=== PATIENT | female | born 1945 | race Caucasian/White ===

== ENCOUNTER 2022-11-24 09:09 | Day surgery (SDC) | payer OTHER ==
[~2022-11-24] VITALS: Ht 157.5 cm; Wt 66.3 kg
[~2022-11-24 09:09] MED LIST: HYDR1TAB94 PO; IBUP800 PO
[2022-11-24] MEDS ORDERED: BEVESPI AEROS10.7 G1 (09:27)
[2022-11-24] MEDS ORDERED: SYNTHROID100 MC1 PO (09:27)
[2022-11-24] MEDS ORDERED: LOSA50 PO (09:27)
[2022-11-24] MEDS ORDERED: TRULICITY0.75 MG/01 SQ (09:28)
[2022-11-24] MEDS ORDERED: Pentoxifylline400 MG PO (09:28)
[2022-11-24] MEDS ORDERED: ALBU2.5V5 INH (09:32)
[2022-11-24] MEDS ORDERED: OTEZLA30 MG PO (09:32)
[2022-11-24] MEDS ORDERED: RYBELSUS7 MG PO (09:32)
[2022-11-24] MEDS ORDERED: INSULANI (09:35)
--- NOTE | 2022-11-24 09:42 | NUR ---
11/24/22 0942 Rosa Serrano CALL LIGHT WITHIN REACH. TETRACAINE IN AT 0929 IN THE RIGHT EYE AND PLEDGETT IN AT 0930
[2022-11-24 10:42] VITALS: BP 164/82
== END 2022-11-24 11:03 | disposition home or self-care (01) ==
LOC: ORSCSDS 09:09
PROVIDERS: Student in an Organized Health Care Education/Training Program
PROC: 08RJ3JZ Replacement of Right Lens with Synthetic Substitute, Percutaneous Approach (ICD-10-PCS; principal; 2022-11-24 10:30)
DX: E11.36 Type 2 diabetes mellitus with diabetic cataract (principal); H25.11 Age-related nuclear cataract, right eye; I10 Essential (primary) hypertension; Z99.81 Dependence on supplemental oxygen; Z87.891 Personal history of nicotine dependence; J44.9 Chronic obstructive pulmonary disease, unspecified; E03.9 Hypothyroidism, unspecified; E78.5 Hyperlipidemia, unspecified; Z79.4 Long term (current) use of insulin; Z79.899 Other long term (current) drug therapy
CPT/HCPCS: 82947; J2250; J7040; V2632

== ENCOUNTER 2022-12-08 06:40 | Day surgery (SDC) | payer OTHER ==
[~2022-12-08] VITALS: Ht 157.5 cm; Wt 67.2 kg
[~2022-12-08 06:40] MED LIST changes: +ALBU2.5V5 INH; +BEVESPI AEROS10.7 G1; +INSULANI; +LOSA50 PO; +OTEZLA30 MG PO; +Pentoxifylline400 MG PO; +RYBELSUS7 MG PO; +SYNTHROID100 MC1 PO; +TRULICITY0.75 MG/01 SQ
--- NOTE | 2022-12-08 09:04 | NUR ---
12/08/22 0904 Waqas Mojica PT'S O2 85-91% INITIALLY ON RA UPON ARRIVAL IN SDU. PT GIVEN ALBUTEROL NEBULIZER.
[2022-12-08 09:59] VITALS: BP 165/65
== END 2022-12-08 10:00 | disposition home or self-care (01) ==
LOC: ORSCSDS 06:40
PROVIDERS: Student in an Organized Health Care Education/Training Program
PROC: 08RK3JZ Replacement of Left Lens with Synthetic Substitute, Percutaneous Approach (ICD-10-PCS; principal; 2022-12-08 08:00)
DX: E11.36 Type 2 diabetes mellitus with diabetic cataract (principal); Z96.1 Presence of intraocular lens; E78.5 Hyperlipidemia, unspecified; I10 Essential (primary) hypertension; E03.9 Hypothyroidism, unspecified; Z79.82 Long term (current) use of aspirin; Z79.4 Long term (current) use of insulin; Z79.899 Other long term (current) drug therapy; Z87.891 Personal history of nicotine dependence
CPT/HCPCS: 82947; J2001; J2250; J3010; J7040; V2632

== ENCOUNTER → 2024-02-11 | Outpatient (CLI) | payer OTHER | LOC: LAB 15:18 → LAB SHORT 15:18 | DX: R39.9 Unspecified symptoms and signs involving the genitourinary system (principal) | CPT/HCPCS: 87077; 87086; 87186 ==